=== PATIENT | female | born 1945 | race Caucasian/White ===

== ENCOUNTER 2018-04-06 13:03 | Emergency (ER) | payer MEDICARE, OTHER ==
[2018-04-06 14:01] LABS: BASO % 0.4 % (0-6); EOS % 1.1 % (0-6); GRAN % 62.4 % (47-80); HEMATOCRIT 42.4 % (35.0-47.0); HEMOGLOBIN 14.3 gm/dl (11.6-16.0); LYMPH % 26.6 % (16-45); MEAN CELL VOLUME 97.9 fl (81-97); MEAN CORPUSCULAR HGB CONC 33.7 g/dl (32-36); MEAN PLATELET VOLUME 9.4 fl (7.4-10.4); MONO % 9.5 % (0-9); PLATELET COUNT 343 K/uL (130-400); RED BLOOD COUNT 4.33 M/uL (3.80-5.40); RED CELL DISTRIBUTION WIDTH 12.7 % (11.5-14.5); WHITE BLOOD COUNT W/O DIFF 10.4 K/uL (4.2-12.2)
[2018-04-06 14:03] LABS: URINE APPEARANCE CLEAR; URINE BILIRUBIN NEGATIVE (NEGATIVE); URINE BLOOD NEGATIVE (NEGATIVE); URINE COLOR YELLOW; URINE GLUCOSE (UA) NEGATIVE (NEGATIVE); URINE KETONE NEGATIVE (NEGATIVE); URINE LEUKOCYTE ESTERASE NEGATIVE (NEGATIVE); URINE NITRITE NEGATIVE (NEGATIVE); URINE PROTEIN NEGATIVE (NEGATIVE); URINE UROBILINOGEN 0.2 E.U./dL (0.20 - 1.00)
[2018-04-06 14:13] LABS: BLOOD UREA NITROGEN 15 mg/dL (8-23); CREATININE 0.8 mg/dL (0.5-0.9); EST GLOMERULAR FILTRATION RATE > 60 mL/min
[2018-04-06 14:14] LABS: TOTAL PROTEIN 8.1 g/dL (6.6-8.7)
[2018-04-06 14:16] LABS: GLUCOSE,RANDOM 87 mg/dL (74-109)
[2018-04-06 14:19] LABS: ALB/GLOB RATIO 1.5 (1.1-1.8); ALBUMIN 4.9 g/dL (4.0-5.0); ALKALINE PHOSPHATASE 81 U/L (35-104); ALT/SGPT 20 U/L (<33); AST/SGOT 27 U/L (10.0-35.0)
--- NOTE | 2018-04-06 14:35 | Emergency Department Record ---
History of Present Illness - General Chief complaint: Allergic Reaction Stated complaint: REACTION TO NEW MEDS Time Seen by Provider: 04/06/18 13:05 Source: Patient Mode of Arrival: Ambulatory Limitations: No limitations - History of Present Illness Initial Comments: pt has frequent utis. she was on bactrim and then was switched to keflex. now she feels that she is having a rxn to the keflex with red eyes, being tired and having abd pain MD Complaint: Other Onset/Timin -: Week(s) Exposure: Unknown Symptoms: Abdominal pain, Other Severity: Mild Treatment Prior to Arrival: None Previous Allergy History: None - Related Data Home Medications Medication Instructions Recorded Confirmed Last Taken Cephalexin 500 mg PO BID 04/06/18 04/06/18 Unknown Allergies Allergy/AdvReac Type Severity Reaction Status Date / Time clindamycin Allergy Intermediate HIVES Unverified 09/28/17 15:15 phenobarbital Allergy Intermediate HIVES Unverified 09/28/17 15:15 cefadroxil hydrate Allergy hives Unverified 09/28/17 15:15 [place] [facility] [place] Allergy Unverified 11/08/17 11:50 Travel Screening - Travel/Exposure Within Last 30 Days Have you traveled within the last 30 days?: No Review of Systems Reviewed: No additional complaints except as noted below Constitutional: Reports: As per HPI. Denies: Chills, Fever, Malaise, Night sweats, Weakness, Weight change Eyes: Reports: As per HPI. Denies: Eye discharge, Eye pain, Photophobia, Vision change ENT: Reports: As per HPI. Denies: Congestion, Dental pain, Ear pain, Epistaxis , Hearing loss, Throat pain Respiratory: Reports: As per HPI. Denies: Cough, Dyspnea, Hemoptysis, Stridor, Wheezes Cardiovascular: Reports: As per HPI. Denies: Arrhythmia, Chest pain, Dyspnea on exertion, Edema, Murmurs, Orthopnea, Palpitations, Paroxysmal nocturnal dyspnea, Rheumatic Fever, Syncope Endocrine: Reports: As per HPI. Denies: Fatigue, Heat or cold intolerance, Polydipsia, Polyuria Gastrointestinal: Reports: As per HPI, Abdominal pain. Denies: Constipation, Diarrhea, Hematemesis, Hematochezia, Melena, Nausea, Vomiting Genitourinary: Reports: As per HPI. Denies: Abnormal menses, Discharge, Dyspareunia, Dysuria, Frequency, Hematuria, Incontinence, Retention, Urgency Musculoskeletal: Reports: As per HPI. Denies: Arthralgia, Back pain, Gout, Joint swelling, Myalgia, Neck pain Skin: Reports: As per HPI. Denies: Bruising, Change in color, Change in hair/ nails, Lesions, Pruritus, Rash Neurological: Reports: As per HPI. Denies: Abnormal gait, Confusion, Headache, Numbness, Paresthesias, Seizure, Tingling, Tremors, Vertigo, Weakness Psychiatric: Reports: As per HPI. Denies: Anxiety, Auditory hallucinations, Depression, Homicidal thoughts, Suicidal thoughts, Visual hallucinations Hematological/Lymphatic: Reports: As per HPI. Denies: Anemia, Blood Clots, Easy bleeding, Easy bruising, Swollen glands Past Medical History - SOCIAL HISTORY Smoking Status: Never smoker Alcohol Use: None Drug Use: None - RESPIRATORY Hx Respiratory Disorders: No - CARDIOVASCULAR Hx Cardio Disorders: No - NEURO Hx Neuro Disorders: No Hx Headaches: Yes - GI Hx GI Disorders: No Hx Irritable Bowel: Yes - Hx Genitourinary Disorders: Yes Hx UTI: Yes - ENDOCRINE Hx Endocrine Disorders: Yes Hx Thyroid Disease: Yes - MUSCULOSKELETAL Hx Musculoskeletal Disorders: Yes Comment:: osteoarthritis - PSYCH Hx Psych Problems: No Hx Depression: Yes - HEMATOLOGY/ONCOLOGY Hx Hematology/Oncology Disorders: No Family Medical History Any Significant Family History?: No Physical Exam - General General Appearance: Alert, Oriented x3, Cooperative, Mild distress - Head Head exam: Normal inspection - Eye Eye exam: Normal appearance, PERRL, Conjunctival injection, EOMI Pupils: Normal accommodation - ENT ENT exam: Normal exam, Mucous membranes moist, Normal external ear exam, Normal orophraynx Ear exam: Normal external inspection. negative: External canal tenderness Nasal Exam: Normal inspection. negative: Discharge, Sinus tenderness Mouth exam: Normal external inspection, Tongue normal Teeth exam: Normal inspection. negative: Dental caries Throat exam: Normal inspection. negative: Tonsillar erythema, Tonsillar exudate - Neck Neck exam: Normal inspection, Full ROM. negative: Tenderness - Respiratory Respiratory exam: Normal lung sounds bilaterally. negative: Respiratory distress - Cardiovascular Cardiovascular Exam: Regular rate, Normal rhythm, Normal heart sounds - GI/Abdominal GI/Abdominal exam: Soft, Normal bowel sounds, Tenderness (suprapubic) - Rectal Rectal exam: Deferred - exam: Deferred - Extremities Extremities exam: Normal inspection, Full ROM, Normal capillary refill. negative: Tenderness - Back Back exam: Reports: Normal inspection, Full ROM. Denies: Muscle spasm, Rash noted, Tenderness - Neurological Neurological exam: Alert, CN II-XII intact, Normal gait, Oriented X3 - Psychiatric Psychiatric exam: Normal affect, Normal mood - Skin Skin exam: Dry, Intact, Normal color, Warm Course Vital Signs 04/06/18 13:13 Temperature 98.5 F Pulse Rate 77 Respiratory 18 Rate Blood Pressure 144/83 Pulse Ox 97 Medical Decision Making - Lab Data Result diagrams: 04/06/18 13:57 04/06/18 13:57 Lab Results 04/06/18 04/06/18 04/06/18 Range/Units 13:57 13:57 13:57 WBC 10.4 (4.2-12.2) K/uL RBC 4.33 (3.80-5.40) M/uL Hgb 14.3 (11.6-16.0) gm/dl Hct 42.4 (35.0-47.0) % MCV 97.9 H (81-97) fl MCH 33.0 (27-33) pg MCHC 33.7 (32-36) g/dl RDW 12.7 (11.5-14.5) % Plt Count 343 (130-400) K/uL MPV 9.4 (7.4-10.4) fl Gran % 62.4 (47-80) % Lymphocytes % 26.6 (16-45) % Monocytes % 9.5 H (0-9) % Eosinophils % 1.1 (0-6) % Basophils % 0.4 (0-6) % Sodium 133 L (136-145) mmol/L Potassium 4.5 (3.4-4.5) mmol/L Chloride 96 L (98-107) mmol/L Carbon Dioxide 27.0 (22-29) mmol/L Anion Gap 10.0 (7-16) BUN 15 (8-23) mg/dL Creatinine 0.8 (0.5-0.9) mg/dL Estimated GFR > 60 mL/min Random Glucose 87 (74-109) mg/dL Calcium 9.2 (8.8-10.2) mg/dL Total Bilirubin 0.20 (0.2-1.0) mg/dL AST 27 (10.0-35.0) U/L ALT 20 (<33) U/L Alkaline Phosphatase 81 (35-104) U/L Total Protein 8.1 (6.6-8.7) g/dL Albumin 4.9 (4.0-5.0) g/dL Globulin 3.2 (1.4-4.8) gm/dL Albumin/Globulin Ratio 1.5 (1.1-1.8) Urine Color Yellow Urine Appearance Clear Urine pH 6.0 (5.0-8.0) Ur Specific [place] 1.015 (1.002-1.030) Urine Protein Negative (NEGATIVE) Urine Glucose (UA) Negative (NEGATIVE) Urine Ketones Negative (NEGATIVE) Urine Blood Negative (NEGATIVE) Urine Nitrite Negative (NEGATIVE) Urine Bilirubin Negative (NEGATIVE) Urine Urobilinogen 0.2 (0.20 - 1.00) E.U./dL Ur Leukocyte Esterase Negative (NEGATIVE) Disposition Disposition: Discharge Clinical Impression: Medication reaction Qualifiers: Encounter type: initial encounter Qualified Code(s): T50.905A - Adverse effect of unspecified drugs, medicaments and biological substances, initial encounter Abdominal pain Qualifiers: Abdominal location: lower abdomen, unspecified Qualified Code(s): R10.30 - Lower abdominal pain, unspecified Disposition: Home, Self-Care Condition: (1) Good Instructions: Abdominal Pain (ED), Adverse Drug Reaction (ED) Additional Instructions: follow up with family doctor. return sooner if worse. have mri of liver to evaluate. Forms: Patient Portal Access Quality - Quality Measures Quality Measures: N/A - Blood Pressure Screening Does Patient Have Any of the Following: No Blood Pressure Classification: Pre-Hypertensive BP Reading Systolic Measurement: 144 Diastolic Measurement: 83 Screening for High Blood Pressure: < Pre-Hypertensive BP, F/U Documented > [ G8950] Pre-Hypertensive Follow-up Interventions: Follow-up with rescreen every year.
--- NOTE | 2018-04-06 14:40 | Emergency Department Record ---
History of Present Illness - General Chief complaint: Allergic Reaction Stated complaint: REACTION TO NEW MEDS Time Seen by Provider: 04/06/18 13:05 Source: Patient Mode of Arrival: Ambulatory Limitations: No limitations - History of Present Illness Onset/Timin -: Week(s) Exposure: Unknown Symptoms: Abdominal pain, Other Severity: Mild Treatment Prior to Arrival: None - Related Data Home Medications Medication Instructions Recorded Confirmed Last Taken Cephalexin 500 mg PO BID 04/06/18 04/06/18 Unknown Allergies Allergy/AdvReac Type Severity Reaction Status Date / Time clindamycin Allergy Intermediate HIVES Unverified 09/28/17 15:15 phenobarbital Allergy Intermediate HIVES Unverified 09/28/17 15:15 cefadroxil hydrate Allergy hives Unverified 09/28/17 15:15 [From [facility]] ranitidine Allergy Unverified 11/08/17 11:50 Travel Screening - Travel/Exposure Within Last 30 Days Have you traveled within the last 30 days?: No Past Medical History - SOCIAL HISTORY Smoking Status: Never smoker Alcohol Use: None Drug Use: None - RESPIRATORY Hx Respiratory Disorders: No - CARDIOVASCULAR Hx Cardio Disorders: No - NEURO Hx Neuro Disorders: No Hx Headaches: Yes - GI Hx GI Disorders: No Hx Irritable Bowel: Yes - Hx Genitourinary Disorders: Yes Hx UTI: Yes - ENDOCRINE Hx Endocrine Disorders: Yes Hx Thyroid Disease: Yes - MUSCULOSKELETAL Hx Musculoskeletal Disorders: Yes Comment:: osteoarthritis - PSYCH Hx Psych Problems: No Hx Depression: Yes - HEMATOLOGY/ONCOLOGY Hx Hematology/Oncology Disorders: No Family Medical History Any Significant Family History?: No Course Vital Signs 04/06/18 13:13 Temperature 98.5 F Pulse Rate 77 Respiratory 18 Rate Blood Pressure 144/83 Pulse Ox 97 Medical Decision Making - Lab Data Result diagrams: 04/06/18 13:57 04/06/18 13:57 Lab Results 04/06/18 04/06/18 04/06/18 Range/Units 13:57 13:57 13:57 WBC 10.4 (4.2-12.2) K/uL RBC 4.33 (3.80-5.40) M/uL Hgb 14.3 (11.6-16.0) gm/dl Hct 42.4 (35.0-47.0) % MCV 97.9 H (81-97) fl MCH 33.0 (27-33) pg MCHC 33.7 (32-36) g/dl RDW 12.7 (11.5-14.5) % Plt Count 343 (130-400) K/uL MPV 9.4 (7.4-10.4) fl Gran % 62.4 (47-80) % Lymphocytes % 26.6 (16-45) % Monocytes % 9.5 H (0-9) % Eosinophils % 1.1 (0-6) % Basophils % 0.4 (0-6) % Sodium 133 L (136-145) mmol/L Potassium 4.5 (3.4-4.5) mmol/L Chloride 96 L (98-107) mmol/L Carbon Dioxide 27.0 (22-29) mmol/L Anion Gap 10.0 (7-16) BUN 15 (8-23) mg/dL Creatinine 0.8 (0.5-0.9) mg/dL Estimated GFR > 60 mL/min Random Glucose 87 (74-109) mg/dL Calcium 9.2 (8.8-10.2) mg/dL Total Bilirubin 0.20 (0.2-1.0) mg/dL Total Protein 8.1 (6.6-8.7) g/dL Urine Color Yellow Urine Appearance Clear Urine pH 6.0 (5.0-8.0) Ur Specific [place] 1.015 (1.002-1.030) Urine Protein Negative (NEGATIVE) Urine Glucose (UA) Negative (NEGATIVE) Urine Ketones Negative (NEGATIVE) Urine Blood Negative (NEGATIVE) Urine Nitrite Negative (NEGATIVE) Urine Bilirubin Negative (NEGATIVE) Urine Urobilinogen 0.2 (0.20 - 1.00) E.U./dL Ur Leukocyte Esterase Negative (NEGATIVE) Disposition Quality - Blood Pressure Screening Does Patient Have Any of the Following: No Blood Pressure Classification: Pre-Hypertensive BP Reading Systolic Measurement: 144 Diastolic Measurement: 83 Screening for High Blood Pressure: < Pre-Hypertensive BP, F/U Documented > [ G8950]
--- NOTE | 2018-04-09 09:44 | CT SCAN REPORT ---
EXAM: CT OF THE ABDOMEN AND PELVIS WITHOUT CONTRAST HISTORY: ABDOMINAL PAIN, PRIOR SPLENECTOMY. TECHNIQUE: Axial CT scan of the abdomen and pelvis was performed without oral or IV contrast. Comparison: None. FINDINGS: Surgical clips are seen in the left upper quadrant consistent with splenectomy. No calcified gallstones are seen within the gallbladder. No intrarenal calculi identified on either side. No hydronephrosis or hydroureter is seen. As such the ureters are somewhat difficult to follow in their nondilated course throughout the retroperitoneum and pelvis, but no definite ureteral calculus seen on either side and no bladder calculus evident. Evaluation of the bowel and viscera is extremely limited without oral or IV contrast. There is a low attenuation focus in the right lobe of the liver lateral to the gallbladder. This low attenuation focus measures about 1.4 cm in size and is incompletely evaluated without IV contrast. It does have a noncontrast CT of 5 which would be consistent with a cyst, but could be confirmed as such with a follow-up MRI of the abdomen with attention to the liver if not contraindicated. No definite adrenal, splenic, or renal mass identified. There is moderate diverticulosis in the sigmoid colon and a few diverticula are seen in the proximal colon as well, but no diverticulitis evident. The appendix is seen and appears negative with no appendicitis evident. No free intraperitoneal air or free intraperitoneal fluid identified. Multilevel degenerative disk disease in the lumbar spine with a lumbar levoscoliosis. IMPRESSION: 1. POSTOP SPLENECTOMY. 2. NO DEFINITE URINARY TRACT CALCULI OR HYDRONEPHROSIS IDENTIFIED. 3. SINGLE SMALL LOW ATTENUATION MASS RIGHT LOBE OF THE LIVER DESCRIBED ABOVE. 4. COLONIC DIVERTICULOSIS, BUT NO DIVERTICULITIS EVIDENT. 5. THE APPENDIX APPEARS NEGATIVE. NO FREE AIR OR FREE FLUID EVIDENT. 6. LUMBAR LEVOSCOLIOSIS WITH DIFFUSE DEGENERATIVE CHANGE IN THE LUMBAR SPINE. JOB NUMBER: [id number] [facility]
== END 2018-04-06 15:43 | disposition home or self-care (01) ==
LOC: ER 13:03
DX: T36.1X5A Adverse effect of cephalosporins and other beta-lactam antibiotics, initial encounter (principal); R10.30 Lower abdominal pain, unspecified; R53.83 Other fatigue; H57.813 Brow ptosis, bilateral
CPT/HCPCS: 74176; 80053; 81003; 85025; 99283